=== PATIENT | female | born 1985 | race Caucasian/White ===

== ENCOUNTER → 2019-01-27 | Emergency (ER) | payer OTHER ==
[~2019-01-27] VITALS: Ht 157.5 cm; Wt 59.0 kg
[~2019-01-27] MED LIST: LIPITOR20 MG
== END | disposition home or self-care (01) ==
LOC: ER 20:40
DX: R11.0 Nausea (principal)

== ENCOUNTER 2019-06-27 19:33 | Emergency (ER) | payer OTHER ==
[~2019-06-27] VITALS: Ht 157.5 cm; Wt 57.6 kg
== END 2019-06-27 22:22 | disposition home or self-care (01) ==
LOC: ER 19:33
DX: R51 Headache (principal)

== ENCOUNTER 2019-08-27 18:49 | Emergency (ER) | payer OTHER ==
[~2019-08-27] VITALS: Ht 157.5 cm; Wt 58.5 kg
[2019-08-28] MEDS ORDERED: TUSNEL LIQUID178 ML PO (00:06)
[2019-08-28] MEDS ORDERED: DOLOGEN CAPLET1 EACH PO (00:06)
[2019-08-28] MEDS ORDERED: OSEL75CA PO (00:06)
== END 2019-08-28 00:27 | disposition home or self-care (01) ==
LOC: ER 18:49
DX: J11.1 Influenza due to unidentified influenza virus with other respiratory manifestations (principal)